=== PATIENT | female | born 2000 | race Two or more races ===

== ENCOUNTER 2024-08-17 20:19 | Observation (INO) | payer MEDICAID, SELFPAY ==
[2024-08-17 20:31] VITALS: BP 130/82; PULSE 126
[2024-08-17 20:35] VITALS: BMI 30.9
== END 2024-08-17 21:09 | disposition home or self-care (01) ==
PROVIDERS: Admitting Provider Obstetrics & Gynecology; Visit Provider Advanced Practice Midwife
DX: O47.1 False labor at or after 37 completed weeks of gestation (principal); Z3A.39 39 weeks gestation of pregnancy
CPT/HCPCS: 59899

== ENCOUNTER 2024-08-18 11:24 | Inpatient (IN) | payer MEDICAID, SELFPAY ==
[2024-08-18] VITALS (122 sets, daily range): BP systolic 0–157; BP diastolic 0–112; PULSE 106–164; RESP 14–21; TEMP 36.4–38.4; O2SAT 94–100; BMI 30.4
[2024-08-18] MEDS: RINGERS LACTATED 1000 ML 1,000 ML 100 ML IV ×3 (11:59→16:20)
[2024-08-18 12:15] LABS: Basophils # (Auto) 0.1 Thou/mm3 (0.0-0.2); Basophils % (Auto) 0 % (0-2.5); Eosinophils % (Auto) 0 % (0-10); Hematocrit 34.8 % (36.0-46.0); Hemoglobin 12.3 g/dL (12.0-16.0); Immature Granulocytes % (Auto) 2 % (0-0); Immature Granulocytes Auto 0.35 Thou/mm3 (0.00-0.00); Lymphocytes # (Auto) 1.8 Thou/mm3 (1.0-4.8); Lymphocytes % (Auto) 8 % (10-50); Mean Corpuscular HGB Conc 35.3 g/dl (31.0-37.0); Mean Corpuscular Hemoglobin 31.1 pg (25.0-35.0); Mean Corpuscular Volume 88 fL (80-100); Monocytes # (Auto) 1.1 Thou/mm3 (0.0-0.8); Monocytes % (Auto) 5 % (0-12); Neutrophils # (Auto) 19.5 Thou/mm3 (1.8-7.7); Neutrophils % (Auto) 85 % (37-80); Nucleated Red Blood Cell % 0 /100 WBC (0); Platelet Count 242 Thou/mm3 (140-440); RDW Standard Deviation 41.5 fL (36.4-46.3); Red Blood Count 3.96 Miln/mm3 (4.00-5.20); White Blood Count 22.8 Thou/mm3 (3.6-11.0)
[2024-08-18 12:54] LABS: Syphilis Nonreactive (Nonreactive)
--- NOTE | 2024-08-18 13:00 | PD.LDHP ---
Documented by User: Jes Laguna CNM 08/18/24 18:00 Documentation for date of: 08/18/24 OB Labor/Induct. HPI History of Present Illness Chief complaint: 23 y/o 39w 6d presents to L&D with SROM in early labor at 2 cm : 1 Para: 0 Term pregnancies: 0 pregnancies: 0 Living children: 0 History of Abortions: Spontaneous and Elective: 0 History of Vaginal deliveries: 0 History of sections: No History of : No Date of last menstrual period: 10/05/23 ZAIN: 08/19/24 Gestational Age (weeks): 39 Gestational Age (days): 6 Gestational age based on last menstrual period: 45 History of present illness: 23 y/o 39w 6d presents to L&D with SROM in early labor at 2 cm grossly ruptured vertex. Category 1 tracing. Pt is having contractions. GBS is neg. Pt's has been unremarkable with the exception of RH negative status. RhoGAM was given at 28 weeks. Pt sees Kimber Harper CNM. History of Present Dating criteria: based on 2nd trimester US only Adequate Care: Yes Ultrasounds: normal mid trimester US Obstetrical complications: none Labs Maternal Blood Type: O Neg Labs: Positive: Rubella Titre, Negative: RPR, Hepatitis B, HIV, Chlamydia, Gonorrhea and Group Beta Strep and Unknown: Herpes Type 1, Herpes Type 2 and Covid-19 Review of Systems Review of Systems Systems Reviewed: All systems reviewed, normal except as documented Past Medical History Surgical History SURGICAL: Negative Section Meds Home Medications and Allergies Home Medications ?Medication ?Instructions ?Recorded ?Confirmed ?Type vit no.95-ferrous 400 tab PO DAILY 08/17/24 08/18/24 History fumarate 28 mg-folic acid 800 mcg tablet () Allergies Allergy/AdvReac Type Severity Reaction Status Date / Time No Known Allergies Allergy Verified 08/18/24 12:13 OB Exam Physical Exam Vital signs: Temp Pulse BP Pulse Ox 99.9 F 136 H 102/56 L 97 08/18/24 17:08 08/18/24 17:39 08/18/24 17:39 08/18/24 17:44 Constitutional Constitutional: no acute distress Routine HEENT Exam Head: Present normocephalic and atraumatic Eye: Present EOMI, PERRL and normal accommodation ENT: Present mucous membranes moist Routine Neck Exam Neck: Present supple, full ROM and trachea midline Routine Respiratory Exam Respiratory: Absent respiratory distress Routine Cardiovascular Exam Cardiovascular: Present RRR Routine Abdominal Exam Abdominal: Present soft Comments: Gravid Uterus EFW 3500g Detailed Labor and Delivery Exam Dilation (cm): 2 Effacement (%): 80 Cervix position: posterior station: -2 Consistency: soft Presentation: Vertex Membranes: ruptured Amniotic fluid: clear Baseline heart rate: 145 monitor accelerations: 15x15 monitor decelerations: None penitentiary variability: Moderate (11-25) Contraction frequency (min): 2-5 Contraction intensity: Moderate Routine Extremities Exam Extremities: Present full ROM Routine Back/Spine/Pelvis Exam Back/Spine: Present full ROM Routine Skin Exam Skin: Present intact, dry and warm Routine Neurological Exam Neurological: Present alert, oriented X3 and CN II-XII intact Routine Psychiatric Exam Psychiatric: Present normal affect and normal thought process OB Results Labs 08/18/24 11:50 08/18/24 13:05 Labs: Short CBC 08/18/24 Range/Units 11:50 WBC 22.8 H (3.6-11.0) Thou/mm3 Hgb 12.3 (12.0-16.0) g/dL Hct 34.8 L (36.0-46.0) % Plt Count 242 (140-440) Thou/mm3 BMP 08/18/24 13:05 Sodium 132 L Potassium 4.0 Chloride 102 Carbon Dioxide 21.4 BUN 8 L Creatinine 0.6 Glucose 114 H Calcium 9.1 Liver Function 08/18/24 Range/Units 13:05 Total Bilirubin 0.6 (0.3-1.2) mg/dL AST 24 (0-34) U/L ALT 14 (10-49) U/L Alkaline Phosphatase 210 H (46-116) U/L Albumin 4.2 (3.5-5.0) gm/dL Urine 08/18/24 Range/Units 14:45 Urine Color Lt-Yellow (Lt Yel-Yel) Urine Clarity Clear (Clear/Hazy) Urine pH 7.5 H (5.0-7.0) Ur Specific [place] 1.010 (1.001-1.035) Urine Protein Negative (Neg - Trace) Urine Glucose (UA) Negative (Negative) OB Assessment & Plan Assessment and Plan (1) Normal labor: Status: Acute (2) Rh negative status during : Status: Acute (3) with 39 completed weeks gestation: Status: Acute Additional Plan Induction method: none Plan: augmentation, anticipate NVD and consult MD gray Additional Plan Comment: Routine admit orders Consult anesthesia for an epidural Continuous EFM RhoGAM in if needed. (2) Rh negative status during Qualifiers: Trimester: third trimester Qualified Code(s): O26.893 - Other specified related conditions, third trimester; Z67.91 - Unspecified blood type, Rh negative Documented by User: Monty Swann MD 08/18/24 19:15 OB Labor/Induct. HPI History of Present Illness Gestational age based on last menstrual period: 45 Meds Home Medications and Allergies Home Medications ?Medication ?Instructions ?Recorded ?Confirmed ?Type vit no.95-ferrous 400 tab PO DAILY 08/17/24 08/18/24 History fumarate 28 mg-folic acid 800 mcg tablet () Allergies Allergy/AdvReac Type Severity Reaction Status Date / Time No Known Allergies Allergy Verified 08/18/24 12:13 OB Exam Physical Exam Vital signs: Temp Pulse BP Pulse Ox 99.9 F 136 H 102/56 L 97 08/18/24 17:08 08/18/24 17:39 08/18/24 17:39 08/18/24 17:44 OB Results Labs 08/18/24 11:50 08/18/24 13:05 Labs: Short CBC 08/18/24 Range/Units 11:50 WBC 22.8 H (3.6-11.0) Thou/mm3 Hgb 12.3 (12.0-16.0) g/dL Hct 34.8 L (36.0-46.0) % Plt Count 242 (140-440) Thou/mm3 BMP 08/18/24 13:05 Sodium 132 L Potassium 4.0 Chloride 102 Carbon Dioxide 21.4 BUN 8 L Creatinine 0.6 Glucose 114 H Calcium 9.1 Liver Function 08/18/24 Range/Units 13:05 Total Bilirubin 0.6 (0.3-1.2) mg/dL AST 24 (0-34) U/L ALT 14 (10-49) U/L Alkaline Phosphatase 210 H (46-116) U/L Albumin 4.2 (3.5-5.0) gm/dL Urine 08/18/24 Range/Units 14:45 Urine Color Lt-Yellow (Lt Yel-Yel) Urine Clarity Clear (Clear/Hazy) Urine pH 7.5 H (5.0-7.0) Ur Specific [place] 1.010 (1.001-1.035) Urine Protein Negative (Neg - Trace) Urine Glucose (UA) Negative (Negative) OB Assessment & Plan Assessment and Plan (1) Normal labor: Status: Acute (2) Rh negative status during : Status: Acute (3) with 39 completed weeks gestation: Status: Acute (2) Rh negative status during Qualifiers: Trimester: third trimester Qualified Code(s): O26.893 - Other specified related conditions, third trimester; Z67.91 - Unspecified blood type, Rh negative(2) Rh negative status during Qualifiers: Trimester: third trimester Qualified Code(s): O26.893 - Other specified related conditions, third trimester; Z67.91 - Unspecified blood type, Rh negative
[2024-08-18 13:13] LABS: Lactate (Lactic Acid) 1.5 mMol/L (0.4-2.0)
[2024-08-18 13:34] LABS: Influenza A Ag Negative; Influenza B Ag Negative
[2024-08-18 13:35] LABS: Alanine Aminotransferase 14 U/L (10-49); Albumin, Serum 4.2 gm/dL (3.5-5.0); Albumin/Globulin Ratio 1.6 (1.2-2.2); Alkaline Phosphatase 210 U/L (46-116); Anion Gap 9 (7-16); Aspartate Amino Transferase 24 U/L (0-34); BUN/Creatinine Ratio 13 Ratio (12-20); Bilirubin,Total 0.6 mg/dL (0.3-1.2); Blood Urea Nitrogen 8 mg/dL (9-23); Calcium 9.1 mg/dL (8.3-10.6); Calcium (Corrected) 9.1 mg/dL (8.5-10.1); Carbon Dioxide 21.4 mMol/L (20.0-31.0); Chloride 102 mMol/L (98-107); Creatinine (Component) 0.6 mg/dL (0.6-1.3); Estimated Creatinine Clearance 176.7 mL/min (>60); Globulin 2.6 gm/dL (2.3-3.5); Glucose 114 mg/dL (74-106); Osmolality,Calculated 263 (275-295); Sodium 132 mMol/L (136-145); Total Protein 6.8 gm/dL (5.7-8.2); eGFR > 60 See Note
[2024-08-18 13:35] LABS: COVID-19 Antigen (In-House) Negative (Negative)
[2024-08-18] MEDS: RINGERS LACTATED 2500 ML IV (13:39)
[2024-08-18] MEDS: ceFAZolin/D5W 2 GM IV 2 GM/100 ML BAG IV (13:40)
[2024-08-18 15:03] LABS: Collection Type, Urine Clean Catch
[2024-08-18 15:13] LABS: Bilirubin,Urine Negative (Negative); Blood,Urine Negative (Negative); Clarity,Urine Clear (Clear/Hazy); Color,Urine Lt-Yellow (Lt Yel-Yel); Glucose, Urine Negative (Negative); Ketones,Urine Negative (Negative); Leukocyte Esterase,Urine Positive (Negative); Nitrite,Urine Negative (Negative); PH,Urine 7.5 (5.0-7.0); Protein,Urine Negative (Neg - Trace); RBC,Urine 9 /hpf (0-3); Squamous Epithelial Cell,Urine 1 /hpf (0-5); Urobilinogen,Urine Negative mg/dL (0.0-1.0); WBC,Urine 25 /hpf (0-5)
[2024-08-18 15:20] LABS: Amphetamine/Metham Scrn,Ur OB Negative (Negative); Benzoylecgonine Screen, Ur OB Negative (Negative); Opiate Screen,Urine OB Negative (Negative); THC Screen,Urine OB Negative (Negative)
[2024-08-18 15:23] LABS: Culture Indicated,Urine Yes
[2024-08-18] MEDS: ACETAMINOPHEN IVPB 1,000 MG/100 ML VIAL 250 MG IV ×2 (16:40→22:44)
[2024-08-18] MEDS: AZITHROMYCIN INJ 500 MG in SODIUM CHLORIDE 0.9% 250 ML 250 ML 250 MG IV (17:09)
--- NOTE | 2024-08-18 17:43 | PD.LDPN ---
Documentation for date of: 08/18/24 OB Labor Progress Note Pain Control Pain control: epidural Pelvic Exam Dilation (cm): 3 Effacement (%): 80 station: -1 Amniotic membrane status: Ruptured (clear) Contractions Monitor mode: External Contraction frequency: 2-5 Status status: Category l Assessment and Plan Assessment: other (Latent labor) Plan OB labor note: begin Pitocin augmentation Comments: Pt has a high fever, sepsis protocol has been ordered and pt has been started on triple ABX. IV tylenol ordered. Start pitocin and see how she does. Dr. Swann is aware Anticipate
[2024-08-18] MEDS: OXYTOCIN in NS 30 units 30 UNIT/500 ML BAG IV (17:51)
--- NOTE | 2024-08-18 19:16 | PD.LDDS ---
DS: Providers Provider Date of admission: 08/18/24 11:24 Primary care physician: Physician No Primary/Family Admitting Provider: Jes Laguna CNM Attending Provider on Admission: Monty Swann MD Attending Provider on DC: Monty Swann MD Discharging Provider: Monty Swann MD DS: Diagnosis Discharge Diagnosis (1) with 39 completed weeks gestation: Status: Acute (2) Rh negative status during : Status: Acute (3) delivery delivered: Status: Acute Problem List Completed Was Problem List Reviewed/Reconciled?: Yes Summary/Hosp Course Brief History: 23 y/o 39w 6d presents to L&D with SROM in early labor at 2 cm grossly ruptured vertex. Category 1 tracing. Pt is having contractions. GBS is neg. Pt's has been unremarkable with the exception of RH negative status. RhoGAM was given at 28 weeks. Pt sees Kimber Harper CNM. Time Spent with Patient Time attestation: Total time spent providing and/or coordinating discharge services: Exam Vital Signs Temp Pulse BP Pulse Ox 99.4 F 127 H 118/68 100 08/18/24 18:09 08/18/24 18:55 08/18/24 18:55 08/18/24 19:14 Discharge Plan Plan Patient Disposition: HOME (Self Care) Patient condition on transfer: Stable Prescriptions/Referrals Prescriptions/Med Rec: New hydrocodone-acetaminophen 5-325 mg tablet 1 tab PO Q6H MDD 4 PRN (Reason: pain) 5 Days Qty: 20 0RF ibuprofen 600 mg tablet 600 mg PO Q6H PRN (Reason: fever or pain) 10 Days Qty: 40 0RF docusate sodium [Stool Softener] 100 mg capsule 100 mg PO QDAY 30 Days Qty: 30 0RF amoxicillin-pot clavulanate 875-125 mg tablet 1 tab PO BID 7 Days Qty: 14 0RF Continued PNV cmb#95-ferrous fumarate-FA [] 28 mg iron- 800 mcg tablet 400 tab PO DAILY Patient Comments: TAKE 1 TABLET BY MOUTH EVERY DAY Referrals: No Primary/Family,Physician [Primary Care Provider] - Monty Swann MD [Physician] - Patient/Caregiver Discharge Instructions Meds to Beds: Yes Discharge Activity: activity as tolerated Education Materials: After a , After Delivery Concerns, Feel Healthy After, Breast Care After , : Caring for Yourself, C Section Dc, Nutrition While , Understanding Depression, Rh-Negative Screening, If You Are Rh Negative Print Language: Tunisian Stand Alone Forms: Mellissa Award Info., Patient Portal Info Letter, Work/Release Restrictions Planned Discharge Date 08/21/24 (2) Rh negative status during Qualifiers: Trimester: third trimester Qualified Code(s): O26.893 - Other specified related conditions, third trimester; Z67.91 - Unspecified blood type, Rh negative
[2024-08-18] MEDS: METOCLOPRAMIDE INJ 5 MG/ML VIAL 2 ML 10 MG IVP (19:19)
[2024-08-18] MEDS: FAMOTIDINE INJ 10 MG/ML VIAL 2 ML 20 MG IV (19:21)
--- NOTE | 2024-08-18 19:21 | ESOP_ITS ---
Operative Note - INFORMATION SECURITY ARCHITECT Procedure Date of procedure: 08/18/24 Procedure Performed: Primary low-transverse section Indication: 23-year-old G1, P0 at 39 weeks 6 days with suspected chorioamnionitis and high fever Rh- status Latent stage of labor remote from delivery Post-Op diagnosis: Same as preoperative Anesthesia type: Spinal Procedure description: Informed consent was obtained, and the patient was taken to the operating room. Identity was confirmed using double identifiers, and she was positioned on the operating table. Spinal anesthesia was administered, and she was placed in the supine position. The abdomen and perineum were prepped in the usual sterile fashion, and a Morris catheter was placed for continuous drainage. Sterile drapes were applied, and the incision site was tested for adequacy of anesthesia. A Pfannenstiel skin incision was made with a scalpel and extended through the subcutaneous fat to the rectus fascia. The rectus fascia was incised on either side of the midline and extended bilaterally. The fascia was carefully dissected off the anterior surface of the rectus muscles both superiorly and inferiorly. The rectus muscles were in the midline, and the peritoneum was identified and entered bluntly using the surgeon's finger. The peritoneal opening was gently stretched to allow adequate access to the uterus. An Min O-ring retractor was placed for improved visualization. The anterior surface of the uterus was palpated, and the bladder reflection was identified. A Robles Cabrera low transverse uterine incision was made in the lower uterine segment, ensuring the bladder was avoided. Uterine entry was performed bluntly, and the incision was stretched to create sufficient room. The amniotic membranes were ruptured, releasing clear fluid. The fetus, in a vertex presentation, was delivered by gently elevating the head from the maternal pelvis, followed by delivery of the shoulders and body with gentle fundal pressure. The umbilical cord was doubly clamped and divided, and the infant was handed to the waiting team. Cord gas samples were obtained. The placenta was delivered by gentle traction on the umbilical cord. The uterine cavity was thoroughly cleared of blood, debris, and membranes. The hysterotomy angles were grasped with Allis clamps, and the hysterotomy was closed in two layers using 1 Monocryl. The first layer approximated the muscle in a running locked fashion, and the second layer approximated the myometrium and uterine serosa in an imbricated manner. Upon completion, the hysterotomy was inspected and confirmed to be hemostatic. The Min retractor was removed. The peritoneal edges were reapproximated, and the rectus muscles were reapproximated. The rectus fascia was closed using 0 Vicryl in a running fashion. The subcutaneous layer was copiously irrigated with warm normal saline, and all bleeding points were cauterized using the Bovie. The subcutaneous fat was closed with 3-0 Vicryl, and the skin was closed using 4-0 Monocryl in a subcuticular fashion. The skin was cleaned, and a sterile dressing was applied. The patient was undraped, the abdomen and back were thoroughly cleaned, and she was transferred to the recovery room in a stable and awake condition. The patient tolerated the procedure well. No complications were encountered, and all instrument, sponge, and lap counts were correct ?2. Estimated blood loss (ml): 600 Complications: none Diagnosis Discharge Diagnosis (1) delivery delivered: Status: Acute (2) with 39 completed weeks gestation: Status: Acute (3) Chorioamnionitis: Status: Acute (4) Rh negative status during : Status: Acute Problem List Completed Was Problem List Reviewed/Reconciled?: Yes (4) Rh negative status during Qualifiers: Trimester: third trimester Qualified Code(s): O26.893 - Other specified related conditions, third trimester; Z67.91 - Unspecified blood type, Rh negative
--- NOTE | 2024-08-18 20:07 | PD.LDDELS ---
Data (Lawson) Data Hx Section: No : 1 Term: 0 : 0 : 0
--- NOTE | 2024-08-18 20:08 | XR_ITS ---
Examination: AP chest portable upright single view Technique: AP upright portable chest single view Exam date and time: August 18, 20242035 hrs. Indications: Sepsis today. Findings: No significant cardiac enlargement No pneumonia or pulmonary edema Thoracic dextroscoliosis 18 degrees Impression: No pneumonia identified
[2024-08-18] MEDS: OXYTOCIN in NS 20 units 20 UNIT/1,000 ML BAG 125 UNIT IV (20:43)
[2024-08-18 21:42] LABS: Basophils # (Auto) 0.1 Thou/mm3 (0.0-0.2); Basophils % (Auto) 0 % (0-2.5); Eosinophils % (Auto) 0 % (0-10); Hematocrit 33.6 % (36.0-46.0); Hemoglobin 11.4 g/dL (12.0-16.0); Immature Granulocytes % (Auto) 2 % (0-0); Lymphocytes # (Auto) 1.6 Thou/mm3 (1.0-4.8); Lymphocytes % (Auto) 6 % (10-50); Mean Corpuscular HGB Conc 33.9 g/dl (31.0-37.0); Mean Corpuscular Hemoglobin 30.6 pg (25.0-35.0); Mean Corpuscular Volume 90 fL (80-100); Monocytes # (Auto) 1.3 Thou/mm3 (0.0-0.8); Monocytes % (Auto) 5 % (0-12); Neutrophils # (Auto) 21.9 Thou/mm3 (1.8-7.7); Neutrophils % (Auto) 86 % (37-80); Nucleated Red Blood Cell % 0 /100 WBC (0); Platelet Count 220 Thou/mm3 (140-440); RDW Standard Deviation 43.3 fL (36.4-46.3); Red Blood Count 3.73 Miln/mm3 (4.00-5.20); White Blood Count 25.3 Thou/mm3 (3.6-11.0)
[2024-08-18] MEDS: KETOROLAC INJ 30 MG/ML VIAL IVP (22:30)
[2024-08-18] MEDS: PIPER/TAZO 3.375 GM 3.375 GM/50 ML BAG IV (22:43)
[2024-08-19] VITALS (8 sets, daily range): BP systolic 98–122; BP diastolic 62–82; PULSE 94–131; RESP 16–21; TEMP 36.4–37.2; O2SAT 94–99
[2024-08-19] MEDS: OXYTOCIN in NS 20 units 20 UNIT/1,000 ML BAG 125 UNIT IV (04:38)
[2024-08-19] MEDS: ACETAMINOPHEN IVPB 1,000 MG/100 ML VIAL 250 MG IV ×3 (04:39→17:07)
[2024-08-19 06:18] LABS: Basophils # (Auto) 0.1 Thou/mm3 (0.0-0.2); Basophils % (Auto) 0 % (0-2.5); Eosinophils % (Auto) 0 % (0-10); Hematocrit 30.1 % (36.0-46.0); Hemoglobin 10.4 g/dL (12.0-16.0); Immature Granulocytes % (Auto) 1 % (0-0); Immature Granulocytes Auto 0.29 Thou/mm3 (0.00-0.00); Lymphocytes # (Auto) 1.5 Thou/mm3 (1.0-4.8); Lymphocytes % (Auto) 6 % (10-50); Mean Corpuscular HGB Conc 34.6 g/dl (31.0-37.0); Mean Corpuscular Hemoglobin 30.5 pg (25.0-35.0); Mean Corpuscular Volume 88 fL (80-100); Monocytes % (Auto) 4 % (0-12); Neutrophils # (Auto) 21.5 Thou/mm3 (1.8-7.7); Neutrophils % (Auto) 88 % (37-80); Nucleated Red Blood Cell % 0 /100 WBC (0); Platelet Count 199 Thou/mm3 (140-440); RDW Standard Deviation 42.2 fL (36.4-46.3); Red Blood Count 3.41 Miln/mm3 (4.00-5.20); White Blood Count 24.4 Thou/mm3 (3.6-11.0)
[2024-08-19] MEDS: PIPER/TAZO 3.375 GM 3.375 GM/50 ML BAG IV ×3 (06:25→22:02)
[2024-08-19] MEDS: ONDANSETRON INJ 2 MG/ML INJ 2 ML 4 MG IV (07:50)
[2024-08-19] MEDS: SIMETHICONE 80 MG CHEW PO ×2 (08:51→19:17)
[2024-08-19] MEDS: DOCUSATE SOD 100 MG CAPSULE PO (08:51)
--- NOTE | 2024-08-19 09:58 | ESPR_ITS ---
RE: BECKIE ZARCO : 2000 DATE OF SERVICE: 08/19/2024 SUBJECTIVE: The patient denies any problem or complaint. She has got adequate urine output with Morris catheter in place. She denies any excessive vaginal bleeding. She denies any dizziness or lightheadedness. She denies any chest pain, palpitations, shortness of breath or lower extremity pain. OBJECTIVE: Vitals Signs: Blood pressure 110/76, heart rate 98, respirations 18, temperature 98.1, pulse oximetry is 98% on room air, T-max is 101.1. Lungs: Clear to auscultation bilaterally. Heart: Regular rate and rhythm. Abdomen: Dressing is dry and intact. Fundus is firm. Extremities: Nontender. LABORATORY DATA: Hemoglobin pre-delivery is 12.3, post-delivery is 10.4; white blood cell count is 24.4. Chest x-ray is negative. Blood and urine cultures are pending. ASSESSMENT: Postop day #1 status post delivery, chorioamnionitis with endometritis. PLAN: IV antibiotics in the form of Zosyn 3.375 g IV q. 8 hours. Remove dressing. Encourage ambulation. Discontinue Morris catheter. support. Assess her possible discharge home in a.m. DT: 08:27:29 TT: 09:55:00 Ref: [id number] - TID: [id number]
--- NOTE | 2024-08-19 11:54 | PC.SS ---
EARLY INTERVENTION SPECIALIST, [place], met with patient [id number] to do initial assessment due to having a history of depression and anxiety. EARLY INTERVENTION SPECIALIST introduced herself, role in the agency, reason for visit, and discussed limits of confidentiality. Patient appeared alert and oriented to self, time, place, and situation. Patient appears stated age. Patient made good eye contact. Patient?s attitude appeared pleasant and cooperative. Patient?s behavior appeared ordinary. Patient?s mood appears ordinary. No signs of delusions or hallucinations. This is 23-year-old, , single female who presented to the hospital to deliver her son. Patient verified her address and phone number. Patient reported that she resides in a home with her boyfriend, José Ta (phone: [phone]). She reports being independent with all her ADLs, no DME use. Patient reported working at [employer]. Patient receives [employer] and food stamps. Patient denied any history or current domestic violence, as well as any involvement with Child Welfare Services. Patient reported using THC; however, when she had knowledge about her , she stopped. Patient denied any current substance use. Patient reported suffering from depression and anxiety. About 3-years-ago, patient used to attend her primary care doctor for medication management. Patient was taking lexapro; however, she discontinued medication due to side effects. Patient denied any HI, SI, previous suicide attempts or psychiatric admissions. Patient?s boyfriend and her mother, José will remain at home with her to assist her. Patient reports feeling happy and excited to return home. Patient reports having all the equipment for the baby. Patient reported having electricity, gas, and potable water. SW provided psychoeducation regarding baby blues and Post- Depression, as well as counseling groups at the [facility].
--- NOTE | 2024-08-19 17:27 | PC.NURSE ---
MD made aware of elevated HR, Per MD give 1L of LR over an hour.
[2024-08-19] MEDS: RINGERS LACTATED 1000 ML 1,000 ML IV (17:35)
[2024-08-19 18:17] LABS: Basophils % (Auto) 0 % (0-2.5); Eosinophils % (Auto) 0 % (0-10); Hematocrit 26.5 % (36.0-46.0); Hemoglobin 9.4 g/dL (12.0-16.0); Immature Granulocytes % (Auto) 1 % (0-0); Immature Granulocytes Auto 0.29 Thou/mm3 (0.00-0.00); Lymphocytes # (Auto) 1.4 Thou/mm3 (1.0-4.8); Lymphocytes % (Auto) 6 % (10-50); Mean Corpuscular HGB Conc 35.5 g/dl (31.0-37.0); Mean Corpuscular Hemoglobin 31.2 pg (25.0-35.0); Mean Corpuscular Volume 88 fL (80-100); Monocytes # (Auto) 0.8 Thou/mm3 (0.0-0.8); Monocytes % (Auto) 4 % (0-12); Neutrophils # (Auto) 20.3 Thou/mm3 (1.8-7.7); Neutrophils % (Auto) 89 % (37-80); Nucleated Red Blood Cell % 0 /100 WBC (0); Platelet Count 204 Thou/mm3 (140-440); RDW Standard Deviation 42.2 fL (36.4-46.3); Red Blood Count 3.01 Miln/mm3 (4.00-5.20)
[2024-08-19] MEDS: KETOROLAC INJ 30 MG/ML VIAL IVP (18:34)
--- NOTE | 2024-08-19 22:30 | PC.NURSE ---
08/19/242009: Removed abdominal wound dressing. pt tolerated well
[2024-08-20] MEDS: HYDROcodone/APAP 5/325 TABLET 1 TAB PO ×2 (00:18→12:03)
[2024-08-20] MEDS: KETOROLAC INJ 30 MG/ML VIAL IVP ×2 (02:56→12:07)
[2024-08-20 03:50] VITALS: BP 105/73; PULSE 110; RESP 24; TEMP 37.3; O2SAT 99
--- NOTE | 2024-08-20 03:52 | PC.NURSE ---
08/20/24: MD Ro made aware of pts. vital signs. Pt. has CBC at 0500. No orders at this time.
[2024-08-20] MEDS: IBUPROFEN TAB 400 MG TABLET 800 MG PO ×2 (06:05→19:10)
[2024-08-20] MEDS: PIPER/TAZO 3.375 GM 3.375 GM/50 ML BAG IV ×3 (06:07→22:00)
[2024-08-20 06:10] VITALS: BP 105/73; PULSE 99; RESP 24; TEMP 36.7; O2SAT 99
[2024-08-20 06:45] LABS: Basophils % (Auto) 0 % (0-2.5); Eosinophils # (Auto) 0.1 Thou/mm3 (0.0-0.5); Eosinophils % (Auto) 1 % (0-10); Hematocrit 26.8 % (36.0-46.0); Hemoglobin 9.2 g/dL (12.0-16.0); Immature Granulocytes % (Auto) 2 % (0-0); Immature Granulocytes Auto 0.41 Thou/mm3 (0.00-0.00); Lymphocytes # (Auto) 1.9 Thou/mm3 (1.0-4.8); Lymphocytes % (Auto) 8 % (10-50); Mean Corpuscular HGB Conc 34.3 g/dl (31.0-37.0); Mean Corpuscular Hemoglobin 30.6 pg (25.0-35.0); Mean Corpuscular Volume 89 fL (80-100); Monocytes # (Auto) 0.9 Thou/mm3 (0.0-0.8); Monocytes % (Auto) 4 % (0-12); Neutrophils # (Auto) 19.6 Thou/mm3 (1.8-7.7); Neutrophils % (Auto) 85 % (37-80); Nucleated Red Blood Cell % 0 /100 WBC (0); Platelet Count 215 Thou/mm3 (140-440); RDW Standard Deviation 42.3 fL (36.4-46.3); Red Blood Count 3.01 Miln/mm3 (4.00-5.20)
[2024-08-20 08:00] VITALS: BP 114/80; PULSE 93; RESP 22; TEMP 36.7; O2SAT 98
[2024-08-20] MEDS: HYDROcodone/APAP 5/325 TABLET 2 TAB PO ×2 (08:07→22:01)
[2024-08-20] MEDS: DOCUSATE SOD 100 MG CAPSULE PO (08:07)
[2024-08-20] MEDS: SIMETHICONE 80 MG CHEW PO (08:07)
--- NOTE | 2024-08-20 10:04 | ESPR_ITS ---
RE: BECKIE ZARCO : 2000 DATE OF SERVICE: 08/20/2024 S: Postop day #2, the patient denies any problem or complaint. She is voiding. She is ambulating. She is tolerating regular diet. She is passing flatus. She denies any excessive vaginal bleeding. She denies any dizziness or lightheadedness. She denies any chest pain, palpitations, shortness of breath, or lower extremity pain. She denies any headache, stiff neck, flank pain, dysuria, or diarrhea. O: Vital Signs: Blood pressure 114/80, heart rate 93, respirations 22, temperature is 98.1, and pulse ox is 98% on room air. Lungs: Clear to auscultation bilaterally. Heart: Regular rate and rhythm. Abdomen: Incision clear and intact. Fundus is firm. Extremities: Nontender. LABORATORY DATA: White blood cell count is 23,000, hemoglobin is 9.2. Chest x-ray is negative. Urine culture is negative. Blood cultures are negative. A: Postoperative day #2, status post delivery complicated by chorioamnionitis with suspected endometritis. P: Continue Zosyn. Repeat CBC in the morning. Encourage ambulation, support. Baby remains in the NICU. DT: 09:31:56 TT: 10:03:00 Ref: [id number] - TID: [id number] MTDD
[2024-08-20 12:15] VITALS: BP 109/77; PULSE 98; RESP 18; TEMP 36.4; O2SAT 99
[2024-08-20] MEDS: bisacodyL 10 MG SUPP PR (14:34)
[2024-08-20 15:53] VITALS: BP 108/79; PULSE 100; RESP 19; TEMP 36.6; O2SAT 98
[2024-08-20 19:53] LABS: Basophils % (Auto) 0 % (0-2.5); Eosinophils # (Auto) 0.1 Thou/mm3 (0.0-0.5); Eosinophils % (Auto) 1 % (0-10); Hematocrit 29.9 % (36.0-46.0); Hemoglobin 9.9 g/dL (12.0-16.0); Immature Granulocytes % (Auto) 2 % (0-0); Immature Granulocytes Auto 0.36 Thou/mm3 (0.00-0.00); Lymphocytes # (Auto) 1.9 Thou/mm3 (1.0-4.8); Lymphocytes % (Auto) 9 % (10-50); Mean Corpuscular HGB Conc 33.1 g/dl (31.0-37.0); Mean Corpuscular Hemoglobin 30.3 pg (25.0-35.0); Mean Corpuscular Volume 91 fL (80-100); Monocytes # (Auto) 0.8 Thou/mm3 (0.0-0.8); Monocytes % (Auto) 4 % (0-12); Neutrophils # (Auto) 16.9 Thou/mm3 (1.8-7.7); Neutrophils % (Auto) 84 % (37-80); Nucleated Red Blood Cell % 0 /100 WBC (0); Platelet Count 236 Thou/mm3 (140-440); RDW Standard Deviation 43.2 fL (36.4-46.3); Red Blood Count 3.27 Miln/mm3 (4.00-5.20)
[2024-08-20 20:07] VITALS: BP 118/81; PULSE 118; RESP 18; TEMP 37.5; O2SAT 98
[2024-08-21 00:21] VITALS: BP 106/74; PULSE 93; RESP 16; TEMP 36.7; O2SAT 97
[2024-08-21 03:54] VITALS: BP 115/70; PULSE 106; RESP 20; TEMP 36.8; O2SAT 98
[2024-08-21 06:15] LABS: Basophils % (Auto) 0 % (0-2.5); Eosinophils # (Auto) 0.1 Thou/mm3 (0.0-0.5); Eosinophils % (Auto) 1 % (0-10); Hematocrit 27.4 % (36.0-46.0); Hemoglobin 9.3 g/dL (12.0-16.0); Immature Granulocytes % (Auto) 2 % (0-0); Immature Granulocytes Auto 0.31 Thou/mm3 (0.00-0.00); Lymphocytes # (Auto) 1.9 Thou/mm3 (1.0-4.8); Lymphocytes % (Auto) 12 % (10-50); Mean Corpuscular HGB Conc 33.9 g/dl (31.0-37.0); Mean Corpuscular Hemoglobin 30.8 pg (25.0-35.0); Mean Corpuscular Volume 91 fL (80-100); Monocytes # (Auto) 0.8 Thou/mm3 (0.0-0.8); Monocytes % (Auto) 5 % (0-12); Neutrophils # (Auto) 13.4 Thou/mm3 (1.8-7.7); Neutrophils % (Auto) 81 % (37-80); Nucleated Red Blood Cell % 0 /100 WBC (0); Platelet Count 222 Thou/mm3 (140-440); RDW Standard Deviation 42.2 fL (36.4-46.3); Red Blood Count 3.02 Miln/mm3 (4.00-5.20); White Blood Count 16.7 Thou/mm3 (3.6-11.0)
[2024-08-21] MEDS: PIPER/TAZO 3.375 GM 3.375 GM/50 ML BAG IV (06:19)
[2024-08-21] MEDS: HYDROcodone/APAP 5/325 TABLET 1 TAB PO (06:20)
[2024-08-21 07:40] VITALS: BP 118/70; PULSE 99; RESP 17; TEMP 36.9; O2SAT 99
--- NOTE | 2024-08-21 07:46 | PD.LDPPPRG ---
Subjective Subjective Interval history: Delivery type: Patient doing well this morning. No acute complaints. Ambulating, tolerating p.o. and voiding without difficulty. HTN/Pre-Eclampsia screen: No chest pain, shortness of breath, headache, visual changes, epigastric or right upper quadrant pain. Breast-feeding, lochia diminishing. Bowel: Flatus+/ BM+ Exam Vital Signs Temp Pulse Resp BP Pulse Ox O2 Del Method O2 Flow Rate 98.2 F 106 H 20 115/70 98 Room Air 0 08/21/24 03:54 08/21/24 03:54 08/21/24 03:54 08/21/24 03:54 08/21/24 03:54 08/21/24 03:54 08/21/24 03:54 Constitutional Constitutional: no acute distress Routine HEENT Exam Head: Present normocephalic and atraumatic Eye: Present EOMI and PERRL ENT: Present mucous membranes moist Routine Neck Exam Neck: Present supple and trachea midline Routine Respiratory Exam Respiratory: Present chest non-tender, lungs clear, normal breath sounds and no resp distress Routine Cardiovascular Exam Cardiovascular: Present RRR Routine Abdominal Exam Abdominal: Present soft and normoactive bowel sounds Routine Extremities Exam Extremities: Present full ROM Routine Skin Exam Skin: Present intact, dry and warm Routine Neurological Exam Neurological: Present alert, oriented X3 and CN II-XII intact Routine Psychiatric Exam Psychiatric: Present normal affect and normal thought process Objective Labs 08/21/24 05:02 08/18/24 13:05 Labs: Laboratory Results - last 24 hr 08/20/24 08/21/24 19:18 05:02 WBC 20.0 H 16.7 H RBC 3.27 L 3.02 L Hgb 9.9 L 9.3 L Hct 29.9 L 27.4 L MCV 91 91 MCH 30.3 30.8 MCHC 33.1 33.9 RDW Std Deviation 43.2 42.2 Plt Count 236 222 Neut % (Auto) 84 H 81 H Lymph % (Auto) 9 L 12 Letcher % (Auto) 4 5 Eos % (Auto) 1 1 Baso % (Auto) 0 0 Neut # (Auto) 16.9 H 13.4 H Lymph # (Auto) 1.9 1.9 Letcher # (Auto) 0.8 0.8 Eos # (Auto) 0.1 0.1 Baso # (Auto) 0.0 0.0 Immature Gran # (Auto) 0.36 H 0.31 H Absolute Nucleated RBC 0.00 0.00 Immature Gran % 2 H 2 H Nucleated RBC % 0 0 Assessment & Plan Problem List (1) delivery delivered: Status: Acute Assessment and plan: PPD/POD#3 1. Continue routine care 2. Transition to PO meds. 3. Encourage to ambulate/ breast-feed 4. Anticipate discharge home today. (2) with 39 completed weeks gestation: Status: Acute (3) Chorioamnionitis: Status: Acute (4) Rh negative status during : Status: Acute Time Spent With Patient Time: Total time spent is greater than 50% in coordination of care (as documented) at patient's floor/unit and/or counseling patient:
--- NOTE | 2024-08-21 07:46 | PD.LDDS ---
DS: Providers Provider Date of admission: 08/18/24 11:24 Primary care physician: Physician No Primary/Family Admitting Provider: Jes Laguna CNM Attending Provider on Admission: Krystian Ro MD Consults: 08/18/24 20:26 Referral Routine Comment: Attending Provider on DC: Monty Swann MD Discharging Provider: Monty Swann MD DS: Diagnosis Discharge Diagnosis (1) Chorioamnionitis: Status: Acute (2) delivery delivered: Status: Acute Problem List Completed Was Problem List Reviewed/Reconciled?: Yes Summary/Hosp Course Brief History: 23 y/o 39w 6d presents to L&D with SROM in early labor at 2 cm grossly ruptured vertex. Category 1 tracing. Pt is having contractions. GBS is neg. Pt's has been unremarkable with the exception of RH negative status. RhoGAM was given at 28 weeks. Pt sees Kimber Harper CNM. Peripartum Data Procedures: Procedures Operation Date: 08/18/24 19:30 Actual Procedure Side Surgeon p in OB Bilateral Monty Swann MD Time Spent with Patient Time attestation: Total time spent providing and/or coordinating discharge services: Exam Vital Signs Temp Pulse Resp BP Pulse Ox O2 Del Method O2 Flow Rate 98.2 F 106 H 20 115/70 98 Room Air 0 08/21/24 03:54 08/21/24 03:54 08/21/24 03:54 08/21/24 03:54 08/21/24 03:54 08/21/24 03:54 08/21/24 03:54 Discharge Plan Plan Patient Disposition: HOME (Self Care) Patient condition on transfer: Stable Prescriptions/Referrals Prescriptions/Med Rec: New hydrocodone-acetaminophen 5-325 mg tablet 1 tab PO Q6H MDD 4 PRN (Reason: pain) 5 Days Qty: 20 0RF ibuprofen 600 mg tablet 600 mg PO Q6H PRN (Reason: fever or pain) 10 Days Qty: 40 0RF docusate sodium [Stool Softener] 100 mg capsule 100 mg PO QDAY 30 Days Qty: 30 0RF amoxicillin-pot clavulanate 875-125 mg tablet 1 tab PO BID 7 Days Qty: 14 0RF Continued PNV cmb#95-ferrous fumarate-FA [] 28 mg iron- 800 mcg tablet 400 tab PO DAILY Patient Comments: TAKE 1 TABLET BY MOUTH EVERY DAY Referrals: Monty Swann MD [Physician] - No Primary/Family,Physician [Primary Care Provider] - Patient/Caregiver Discharge Instructions Meds to Beds: Yes Discharge Activity: activity as tolerated Other Discharge Activity Instructions:: Follow up with CN within 1 week. Education Materials: After Delivery [place] Concerns, Breast Care After , After a , Nutrition While , If You Are Rh Negative, Rh-Negative Screening, Understanding Depression, : Caring for Yourself, C Section Dc, Feel Healthy After Print Language: Rwandan Stand Alone Forms: Mellissa Award Info., Patient Portal Info Letter, Work/Release Restrictions Discharge Order Discharge Orders: Discharge (Routine); Ordered 08/21/24 Ordered By: Krystian Ro Planned Discharge Date 08/21/24
[2024-08-21] MEDS: DOCUSATE SOD 100 MG CAPSULE PO (08:24)
--- NOTE | 2024-08-21 09:44 | ESPR_ITS ---
RE: BECKIE ZARCO : 2000 DATE OF SERVICE: 08/21/2024 S: Postoperative day #3, the patient denies any problem or complaints. She is voiding. She is ambulating. She tolerated regular diet. She is passing flatus. She denies any excessive vaginal bleeding. She denies any dizziness or lightheadedness. She denies any chest pain, palpitations, shortness of breath, or lower extremity pain. O: Vital Signs: Blood pressure is 115/70, heart rate 106, respirations 20, temperature 98.2, and pulse ox is 98% on room air. Lungs: Clear to auscultation bilaterally. Heart: Regular rate and rhythm. Abdomen: Incision clear and intact. Fundus is firm. Extremities: Nontender. LABORATORY DATA: Hemoglobin is 9.3. White blood cell count is 16.7. A: Postoperative day #3, status post delivery with endometritis. P: Discharge home on Augmentin. Followup at [facility] within 7 days. Discharge instructions given. DT: 07:38:31 TT: 09:42:00 Ref: [id number] - TID: [id number]
[2024-08-21] MEDS: IBUPROFEN TAB 400 MG TABLET 800 MG PO (11:35)
--- NOTE | 2024-09-03 05:17 | OBDSUM_ITS ---
Data ([facility]) Data Hx Section: No : 1 Para: 0 Term: 0 : 0 : 0 Delivery Data ([facility]) Labor Data Stimulated/Augmented: Yes Method: Oxytocin ROM Date: 08/18/24 ROM Time: 11:10 Rupture Type: SROM Amniotic Fluid: Clear Delivery Data Labor Onset Stage 1 Date: 08/18/24 Labor Onset Stage 1 Time: 19:47 Labor Onset Stage 2 Date: 08/18/24 Labor Onset Stage 2 Time: 19:47 Delivery Date: 08/18/24 Delivery Time: 19:47 Placenta Delivery Date: 08/18/24 Placenta Delivery Time: 19:48 Delivered by: Monty Swann Delivery nurse: Thea Morales Other staff at delivery: Nursery Nurse Other staff at delivery: RT Other staff at delivery: Occupational Psychologist Other staff at delivery: Lea Mcintosh Delivery Method Delivery: Delivery Type: Primary Presentation: Vertex Anesthesia Type Primary Anesthesia: Spinal Placenta Placenta Delivery: Manual Cord Sample: Cord Blood Obtained Umbilical Cord Umbilical Vessels: 3 Data ([facility]) Data Gender: Male Infant Weight Grams: 3860 1 Minute Total: 8 5 Minute Total: 9
== END 2024-08-21 13:37 | disposition home or self-care (01) | DRG 540 ==
LOC: S4SX 19:17 → S4NX 08-19 07:25 → S4SX 08-21 09:18
PROVIDERS: Advanced Practice Midwife; Specialist; Admitting Provider Nurse Practitioner Women's Health; Visit Provider Obstetrics & Gynecology
PROC: 10D00Z1 Extraction of Products of Conception, Low, Open Approach (ICD-10-PCS; CPT 59514; principal; 2024-08-18 19:30)
DX: O41.1230 Chorioamnionitis, third trimester, not applicable or unspecified (principal); O26.893 Other specified pregnancy related conditions, third trimester; Z3A.39 39 weeks gestation of pregnancy; Z67.41 Type O blood, Rh negative; Z37.0 Single live birth
CPT/HCPCS: 36415; 59409; 71045; 80053; 80170; 80307; 81001; 83605; 85025; 85461; 86780; 86850; 86900; 86901; 87040; 87086; 87502; 87811; 94762; A4649; J0131; J0456; J0689; J1885; J2175; J2250; J2274; J2371; J2405; J2543; J2590; J2765; J2790; J2795; J3010; J3490; J7050; J7120; A9270; J0690; J2270

== ENCOUNTER 2025-03-26 10:04 | Emergency (ER) | payer MEDICAID, SELFPAY ==
[2025-03-26 10:17] VITALS: BP 117/76; PULSE 84; RESP 19; TEMP 37.1; O2SAT 95; BMI 27.4
--- NOTE | 2025-03-26 10:24 | EDNOTE_ITS ---
<Statement entered by Macy Petty MD - 03/26/25 17:12> As co-signing physician, I was present and available for consult prn. I concur with the plan and care as documented by the midlevel provider. Upper Respiratory Inf. RME/HPI General Chief Complaint: Flu Like Symptoms Stated Complaint: COugh/congestion wants covid test Time Seen by Provider: 03/26/25 10:13 Source: patient Arrival date/time: 03/26/25 10:04 4-year-old female with no known medical history presents to the emergency room with a chief complaint of cough, congestion x 2 days Mode of arrival: ambulatory Limitations: no limitations Related Data Home Medications ?Medication ?Instructions ?Recorded ?Confirmed vit no.95-ferrous 400 tab PO DAILY 08/17/24 1 10/19/23 fumarate 28 mg-folic acid 800 mcg tablet () Allergies Allergy/AdvReac Type Severity Reaction Status Date / Time No Known Allergies Allergy Verified 08/18/24 12:13 Review of Systems Review of Systems Systems Reviewed: All systems reviewed, normal except as documented Constitutional Constitutional: Reports system reviewed and no additional complaints, except as documented, Denies fatigue, Denies fever(s), Denies headache(s) and Denies weakness Eyes Eyes: Reports system reviewed and no additional complaints, except as documented, Denies blurry vision and Denies change in vision ENT Ears, Nose, Mouth, and Throat: Reports system reviewed and no additional complaints, except as documented, Denies otalgia, Denies headache(s), Denies nasal congestion, Denies throat swelling and Denies vertigo Cardiovascular Cardiovascular: Reports system reviewed and no additional complaints, except as documented, Denies chest pain, Reports dyspnea and Denies dyspnea on exertion Respiratory Respiratory: Reports system reviewed and no additional complaints, except as documented, Denies chest congestion, Reports cough, Reports dyspnea, Denies dyspnea on exertion and Denies wheezing Gastrointestinal Gastrointestinal: Reports system reviewed and no additional complaints, except as documented, Denies abdominal pain, Denies cramping, Denies nausea and Denies vomiting Genitourinary Genitourinary: Reports system reviewed and no additional complaints, except as documented Musculoskeletal Musculoskeletal: Reports system reviewed and no additional complaints, except as documented and Denies back pain Integumentary/Breasts Skin/Breast: Reports system reviewed and no additional complaints, except as documented and Denies wounds Neurologic Neurologic: Reports system reviewed and no additional complaints, except as documented, Denies confusion, Denies headache(s), Denies lack of coordination, Denies vertigo and Denies weakness Psychiatric Psychiatric: Reports system reviewed and no additional complaints, except as documented, Denies anxiety, Denies confusion, Denies depression, Denies paranoia, Denies suicidal ideation and Denies tactile hallucinations Endocrine Endocrine: Reports system reviewed and no additional complaints, except as documented and Denies fatigue Hematologic/Lymphatic Hematologic/Lymphatic: Reports system reviewed and no additional complaints, except as documented and Denies lymphadenopathy Allergic/Immunologic Allergic/Immunologic: Reports system reviewed and no additional complaints, except as documented, Denies throat swelling, Denies urticaria and Denies wheezing Past Medical History Past Medical History NEUROLOGIC: Negative Neurological Disorders or Seizures CARDIAC: Negative Cardiac Disorders or Congestive Heart Failure RESPIRATORY: Negative Chronic Obstructive Pulmonary Disease (COPD) GASTROINTESTINAL: Negative Gastrointestinal Disorders GENITOURINARY: Negative Genitourinary Disorders or Renal Disease MUSCULOSKELETAL: Negative Musculoskeletal Disorders ENDOCRINE: Negative Endocrine Disorders, Diabetes Mellitus Type 1 or Diabetes Mellitus Type 2 HEMATOLOGIC: Negative Blood Disorders OTHER HISTORY: Negative Autoimmune Disease, Blood Transfusions, Blood Transfusion Reaction or Anesthesia Reactions Family History FAMILY HISTORY: Negative Family Psychiatric Problems, Family Respiratory Disorders, Family Cardiac Disorders, Family Gastrointestinal Problems, Family Cancer, Family Surgery or Family Anesthesia Reaction Surgical History SURGICAL: Negative Section Social History SMOKING STATUS: Never smoker ED Exam General Limitations: Present no limitations General appearance: Present alert and in no apparent distress Head Head exam: Present atraumatic Eye Eye exam: Present normal appearance, PERRL and EOMI ENT ENT exam: Present normal exam, normal oropharynx and mucous membranes moist Neck Neck exam: Present normal inspection, full ROM and trachea midline Chest Chest inspection: Present normal inspection and symmetric chest wall rise Respiratory Respiratory exam: Present normal lung sounds bilaterally; Absent respiratory distress, wheezes, stridor, accessory muscle use or prolonged expiratory phase Cardiovascular Cardiovascular exam: Present regular rate, normal rhythm and normal heart sounds; Absent tachycardia Abdominal Exam Abdominal exam: Present soft, tenderness and normal bowel sounds Extremities Exam Extremities exam: Present normal inspection and full ROM Back Exam Back exam: Present normal inspection and full ROM Neurological Exam Neurological exam: Present alert, oriented X3 and CN II-XII intact Psychiatric Psychiatric exam: Present normal affect and normal mood Skin Skin exam: Present warm, dry, intact and normal color Course Quality Measures none Orders Category Date Time Status Bedside COVID-19 Antigen Test NOW Care 03/26/25 10:24 Completed Bedside Influenza A&B Antigen Test NOW Care 03/26/25 10:24 Completed Vital Signs Vital signs: Vital Signs Temperature 98.8 F 03/26/25 10:17 Pulse Rate 84 03/26/25 10:17 Respiratory Rate 19 03/26/25 10:17 Blood Pressure 117/76 03/26/25 10:17 Pulse Oximetry (%) 95 03/26/25 10:17 Oxygen Delivery Method Room Air 03/26/25 10:17 O2 saturation 95% within normal limits Upper Respiratory Infection MDM Narrative MDM Narrative:: 24-year-old female with no known medical history presents to the emergency room with a chief complaint of cough, congestion x 2 days Patient is hemodynamically stable and in no apparent distress. She is afebrile not tachycardic not tachypneic and O2 saturation is 95% on room air Physical examination shows clear bilateral lung sounds there is no wheezing stridor or any abnormal breath sounds. There is no accessory muscle use or pursed lip breathing Patient tested positive for COVID-19 Patient was discharged and educated to follow-up with primary care provider in the next 24 to 48 hours and return to the emergency room for any evidence of worsening signs or symptoms Patient data External records reviewed:: [facility] previous records Clinical information provided by:: patient Social determinants that could affect healthcare access:: none Patient has the following chronic illnesses:: No chronic illness How is presenting disease/condition affected by chronic disease/condition?: no chronic disease Evaluation data The following diagnostics were reviewed and interpreted by me:: lab results and radiology exam(s) Lab and/or radiology exams considered but not ordered:: Labs and radiology exams considered in order Interpretation Summary: N/A Medications / Prescriptions Medications or Prescriptions considered but not ordered:: No medication given Medication administrations:: No medication given Consultations Consultation(s) initiated? (list below): No Diagnosis Upper Respiratory Differential Diagnosis: upper respiratory infection, viral infection, influenza and other (Community-acquired pneumonia/COVID-19) Most likely diagnosis given after review of the tests above:: COVID-19 Admission Indicated Admission indicated?: not indicated Admission Request Was there a request for admission?: No Disposition Plan Disposition Plan: Discharge Discharge Attestation Discharge Attestation: The patient and all family members were given an opportunity to ask questions and understood the discharge instructions. Discharge instructions specifically effects, indications for sooner follow up or return to the emergency department, and the expected course of current diagnosis. Patient condition: Stable Discharge Plan Plan Patient Disposition: HOME (Self Care) Discharge Disposition comment: Stable Prescriptions/Referrals Prescriptions/Med Rec: No Action PNV no.95-ferrous fumarate-FA [] 28 mg iron- 800 mcg tablet 400 tab PO DAILY Patient Comments: TAKE 1 TABLET BY MOUTH EVERY DAY Referrals: Raul Schwartz MD [Primary Care Provider] - In 1 week Problem List Clinical Impression: COVID-19 Patient/Caregiver Discharge Instructions Education Materials: 2019-nCoV Additional Instructions: Please follow-up with your primary care provider in the next 24 to 48 hours. You tested positive for COVID-19. The treatment for this is symptom management. Please continue to take Tylenol and ibuprofen for fever management. Please increase your oral fluid intake. For any evidence of worsening signs or symptoms please return to the emergency room immediately Print Language: Vietnamese Stand Alone Forms: Mellissa Award Info., Work/School Release, Patient Portal Info Letter PA/BUTTONER Supervising Physician MELIZA/LATOYA Supervising Physician: Dr. PETTY
== END 2025-03-26 11:09 | disposition home or self-care (01) ==
PROVIDERS: Emergency Provider Nurse Practitioner Family; PCP Family Medicine
DX: U07.1 COVID-19 (principal)
CPT/HCPCS: 87400; 87811; 99283